=== PATIENT | female | born 1955 ===

== ENCOUNTER 2019-01-09 07:59 | Outpatient (CLI) | payer OTHER ==
--- NOTE | 2019-01-09 10:42 | BD ---
BONE DENSITOMETRY USING DEXA: HISTORY: Postmenopausal screening for osteoporosis. FINDINGS: Lumbar Spine: BMD (g/cm2) L1 0.798 T-Score: -1.7 Z-Score: -0.3 L2 0.808 T-Score: -2.0 Z-Score: -0.4 L3 0.846 T-Score: -2.3 Z-Score: -0.4 L4 0.812 T-Score: -2.3 Z-Score: -0.5 L1-L4 0.817 T-Score: -2.1 Z-Score: -0.4 Femoral Neck: 0.626 T-Score: -2.0 Z-Score: -0.6 Total Femur: 0.737 T-Score: -1.7 Z-Score: -0.5 The 10-year fracture risk for a major osteoporotic fracture is 19% and for a hip fracture is 2.4% Impression: Osteopenia. POS: OFF
--- NOTE | 2019-01-09 11:14 | MMO ---
Bilateral MAMMO Bilat Screen [facility]. CLINICAL HISTORY: Patient is 63 years old and is seen for screening. The patient has no family history of breast cancer. The patient has no personal history of cancer. The patient has a history of left needle biopsy in 2012 - benign. VIEWS: The views performed were: bilateral craniocaudal with tomosynthesis and bilateral mediolateral oblique with tomosynthesis. MAMMOGRAM FINDINGS: There are scattered fibroglandular densities. There is an intramammary lymph node seen in the right breast. There are no suspicious masses, suspicious calcifications, or new areas of architectural distortion. IMPRESSION: THERE IS NO MAMMOGRAPHIC EVIDENCE OF MALIGNANCY. A ROUTINE FOLLOW-UP MAMMOGRAM IN 1 YEAR IS RECOMMENDED. THE RESULTS OF THIS EXAM WERE SENT TO THE PATIENT. ACR BI-RADS Category 2 - Benign finding MAMMOGRAPHY NOTE: 1. A negative mammogram report should not delay a biopsy if a dominant of clinically suspicious mass is present. 2. Approximately 10% to 15% of breast cancers are not detected by mammography. 3. Adenosis and dense breasts may obscure an underlying neoplasm.
== END 2019-01-09 08:00 | disposition home or self-care (01) ==
LOC: BICMAMMO 07:59
PROVIDERS: ATTEND Family Medicine
DX: Z12.31 Encounter for screening mammogram for malignant neoplasm of breast (principal); Z78.0 Asymptomatic menopausal state; M85.89 Other specified disorders of bone density and structure, multiple sites
CPT/HCPCS: 77063; 77067; 77080